=== PATIENT | male | born 1960 | race Caucasian/White ===

== ENCOUNTER → 2017-02-16 | Outpatient (CLI) | payer MEDICAID ==
[~2017-02-16] MED LIST: ALBUTEROL-200 PUFFS/ IH; ATIVAN1 MG PO; CELEXA20 MG PO; CIPRO 500MG TA500 MG PO; HYDROCODONE1 TABLET PO; IBUPROFEN800 MG PO; KEPPRA 500 MG500 MG PO; LORTAB 5/500 501 TAB PO; LORTAB 500 MG-71 TAB PO; MECLIZINE HYDRO25 MG PO; MEDROL 4MG. DOSE4 MG PO; NEURONTIN600 MG PO; SULFAMETHOXAZOL1 TA6 PO; TAMSULOSIN HCL0.4 MG PO; TORADOL10 MG PO; ULTRAM 50 MG TA50 MG PO; VICODIN 5/500 T1 TAB PO; VOLTAREN75 MG PO; XANAX 1MG TABLET1 MG PO
[2017-02-16 20:19] LABS: AMPHETAMINES/METAMPHETAMINES NEGATIVE ng/mL (<1000)
== END ==
LOC: LAB 17:11
PROVIDERS: Nurse Practitioner Family
DX: Z79.899 Other long term (current) drug therapy (principal)